=== PATIENT | male | born 1980 | race Caucasian/White ===

== ENCOUNTER 2018-02-24 17:06 | Emergency (ER) | payer SELFPAY ==
[2018-02-24] MEDS ORDERED: FLUOROMETHOLONE 0.1% LEFT EYE (18:30)
[2018-02-24] MEDS: DIPHTH/TET/ACEL PERTUSS (ADULT) 0.5 ML VIAL IM* (18:47)
[2018-02-24] MEDS: BENOXINATE HCL/FLUORESCEIN SOD 5 ML OPHTH BOTH EYES (19:21)
== END 2018-02-24 19:55 | disposition home or self-care (01) ==
LOC: FTE 17:06
DX: S05.02XA Injury of conjunctiva and corneal abrasion without foreign body, left eye, initial encounter (principal); F17.210 Nicotine dependence, cigarettes, uncomplicated; W22.8XXA Striking against or struck by other objects, initial encounter; Y92.89 Other specified places as the place of occurrence of the external cause; Z23 Encounter for immunization
CPT/HCPCS: 90471; 90715; 99284-25